=== PATIENT | male | born 1960 | race Caucasian/White ===

== ENCOUNTER 2018-01-31 06:07 | Day surgery (SDC) | payer OTHER ==
[2018-01-31] MEDS ORDERED: FENTAnyl 50 MCG/ML VIAL (07:55)
[2018-01-31] MEDS ORDERED: MIDAZOLAM 1 MG/ML 2 ML INJ (07:55)
== END 2018-01-31 10:33 | disposition home or self-care (01) ==
LOC: GIL 06:07
DX: K29.70 Gastritis, unspecified, without bleeding (principal); K21.9 Gastro-esophageal reflux disease without esophagitis; K44.9 Diaphragmatic hernia without obstruction or gangrene; Z86.010 Personal history of colon polyps; Z79.82 Long term (current) use of aspirin
CPT/HCPCS: 43239; 87081